=== PATIENT | male | born 1935 | race Caucasian/White ===

== ENCOUNTER 2016-10-10 21:24 | Emergency (ER) | payer MEDICARE, OTHER ==
[~2016-10-10] VITALS: Ht 172.7 cm; Wt 97.9 kg
[~2016-10-10 21:24] MED LIST: ATOR10TA65 PO
[2016-10-10 21:39] VITALS: Ht 172.7 cm; Wt 97.9 kg
[2016-10-10] MEDS ORDERED: KETOROLAC 15 MG INJ IM STA (21:57)
--- NOTE | 2016-10-10 22:25 | RADRPT ---
AMENDMENT: 10/10/2016 10:32:26 PM Tiago Diez M.d Correction: Comparison: 07/21/2015 PROCEDURE: CT Brain without contrast. CLINICAL INDICATION: Trauma, fall TECHNIQUE: A CT of the brain was performed utilizing axial imaging from the skull base through the vertex without intravenous contrast. Multiplanar reformatted images were made.The CTDIvol is 42.56 mGy and the DLP is 720.23 mGycm. One or more the following dose reduction techniques were utilized: Automated exposure control, adjus tment of the mA/ or kV according to patient's size, or use of iterative reconstruction technique. COMPARISON: None. FINDINGS: There is no intracranial hemorrhage, mass effect, or midline shift. No extra-axial fluid collection is seen. Mild to mild atrophy is identified with compensatory ventricular and sulcal enlargement. Mild decreased attenuation is seen in the periventricular and deep white matter, compatible with mi crovascular ischemic disease. The da silva white matter differentiation is well preserved with no acute infarct detected. The osseous structures and visualized paranasal sinuses are unremarkable. Arteria l calcification. IMPRESSION: 1. No evidence of acute intracranial pathology. Mild left frontal extracranial soft tissue swelling /hematoma and laceration. 2. Mild to moderate diffuse atrophy. 3. There is mild microvascular ischemic disease in the periventricular and deep white matter. RPTAT: HJES .Tiago Diez MD, MD Date Time Electronically viewed and signed by .Tiago Diez MD, MD on 10/10/2016 22:32 .S/
--- NOTE | 2016-10-10 22:28 | RADRPT ---
PROCEDURE: CT facial bones CLINICAL INDICATION: Trauma, fall TECHNIQUE: A CT of the facial bones was performed utilizing high-resolution axial images. Sagitta l, coronal, and multiplanar reformatted images were made. Additionally, 3-D reformatted images were made. The CTDIvol is 29.54 mGy and the DLP is 635.9 mGy-cm. One or more the following dose reduction techniques were utilized: Automated exposure control, adjus tment of the mA/ or kV according to patient's size, or use of iterative reconstruction technique. COMPARISON: None. FINDINGS: The osseous structures are intact with no evidence of fracture. The orbits, as visualized, appear i ntact. The overlying soft tissues are grossly unremarkable. The visualized paranasal sinuses are e ssentially clear. Degenerative changes in cervical spine. Vascular calcification. IMPRESSION: Negative CT of the facial bones with no evidence of acute traumatic injury. RPTAT: HJES .Tiago Diez MD, Date Time Electronically viewed and signed by .Tiago Diez MD, on 10/10/2016 22:28 .S/
[2016-10-10] MEDS ORDERED: DIPHTH/TET/ACEL PERTUSS (ADULT) 0.5 ML VIAL IM* ONE (22:30)
--- NOTE | 2016-10-10 22:32 | RADRPT ---
PROCEDURE: CT Cervical Spine. CLINICAL INDICATION: Fall, fall TECHNIQUE: A CT of the cervical spine was performed utilizing thin section axial images from the skull base through the thoracic inlet. Sagittal and coronal reformatted images were made. The CTDI vol is 22.36 mGy and the DLP is 602.11 mGycm. One or more the following dose reduction techniques were utilized: Automated exposure control, adjus tment of the mA/ or kV according to patient's size, or use of iterative reconstruction technique. COMPARISON: MRI of the cervical spine of 07/23/2015 FINDINGS: No acute fracture or dislocation is seen. There is straightening of the the cervical spine which cou ld be secondary to positioning or muscle spasm. Degenerative changes throughout the cervical spine including multilevel spinal stenosis again seen. Vascular calcification. IMPRESSION: Straightening of the cervical spine which could be secondary to positioning or muscle spasm. No acut e fracture or dislocation seen. Degenerative changes. Please see above. RPTAT: HJES .Tiago Diez MD, MD Date Time Electronically viewed and signed by .Tiago Diez MD, on 10/10/2016 22:31 .S/
[2016-10-10] MEDS ORDERED: LIDOCAINE 2% (MDV) 20 ML INJ INJ ONE (23:00)
[2016-10-10] MEDS ORDERED: HYDR-906 PO (23:41)
[2016-10-10] MEDS ORDERED: NAPR-260 PO (23:41)
--- NOTE | 2016-10-10 23:56 | ERD ---
ER Documentation Chief Complaint Date/Time DATE: 10/10/16 TIME: 23:49 Chief Complaint Laceration to the forehead d/t tripped and fall accident HPI This 81-year-old male stumbled when the front of the shoe got caught on cement while in a parking lot. He fell to the ground and protect himself with one arm but did strike his forehead on the ground leading to a laceration. Also has an abrasion to the back of his right hand. Also has an abrasion to his left knee. He denies any other pain. Denies neck pain denies any new back pain. He is alert and oriented. 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 He does not feel confused or ulcers and did not have any chest pain prior to the fall. ROS All systems reviewed and are negative except as per history of present illness. Medications Home Meds Active Scripts Hydrocodone/Acetaminophen (Belden 5-325 Tablet) 1 Each Tablet, 1 EACH PO Q6, #7 TAB Prov:KEENAN PANCHAL 10/10/16 Naproxen* (Naprosyn*) 500 Mg Tablet, 500 MG PO BID Y for PAIN AND/OR INFLAMMATION, #30 TAB Prov:ABDULKADIRKEENAN 10/10/16 Reported Medications Atorvastatin Calcium (Atorvastatin Calcium) 10 Mg Tablet, 10 MG PO QHS, #30 TAB 07/18/15 Allergies Allergies: Coded Allergies: No Known Allergy (Verified , 07/21/15) PMhx/Soc History of Surgery: No Anesthesia Reaction: No Hx Neurological Disorder: Yes (Traumatic Brain Injury) Hx Respiratory Disorders: No Hx Cardiac Disorders: Yes (hyperlipidemia) Hx Psychiatric Problems: No Hx Alcohol Use: No Hx Substance Use: No Hx Tobacco Use: Yes (occ) Smoking Status: Never smoker Physical Exam Vitals Vital Signs Date Time Temp Pulse Resp B/P Pulse Ox O2 Delivery O2 Flow Rate FiO2 10/10/16 21:39 97.9 101 20 143/88 100 Physical Exam Const: [] No distress Head: Jagged 5 cm laceration to left frontal area of scalp. Currently mildly oozing blood Eyes: Normal conjunctiva, DELANO, EOMI ENT: Normal External Ears, Nose and Mouth. Tympanic membranes without any blood or fluid Neck: Full range of motion..~ No meningismus. No midline tenderness. Abd: Soft, non tender, non distended. Normal bowel sounds Skin: No petechiae or rashes Back: No midline or flank tenderness Ext: No cyanosis, or edema, right hand with several small chin skin tears to the posterior aspect, left knee with abrasion. Full palpation of all other joints and extremities with no pain. Neur: Awake and alert and oriented 3, cranial nerves II through XII intact, no cerebellar deficits, Psych: Normal Mood and Affect Results 24 hrs Current Medications Medications (Trade) Dose Ordered Sig/Lorna Route PRN Reason Start Time Stop Time Status Last Admin Dose Admin Ketorolac Tromethamine (Toradol) 15 mg ONCE STAT IM 10/10/16 21:57 10/10/16 21:58 DC 10/10/16 22:07 Diphtheria/ Tetanus/Acell Pertussis (Adacel) 0.5 ml ONCE ONCE IM* 10/10/16 22:30 10/10/16 22:31 DC 10/10/16 22:28 Lidocaine (Xylocaine 2% (Mdv) 20 ml) 20 ml ONCE ONCE INJ 10/10/16 23:00 10/10/16 23:01 DC Procedures/MDM Elderly male with well described mechanism of a trip injury leading to head injury and scalp laceration and abrasions. CT maxillofacial, head and C-spine with no acute fractures. Patient declined x-ray of hand and wrist as well as left knee. Lacerations sutured in emergency room. Patient was given a shot of Toradol 15 mg which did help his pain dramatically. Being discharged with naproxen as well as a few Belden pills and instructions to follow-up in 2-3 days his primary care doctor and have sutures removed in 5-[address] head interpretation: I see no acute process, no hemorrhage no mass-effect no midline shift, no skull fracture CT C-spine interpretation: I see no acute process, no acute fracture or subluxation, no soft tissue injuries. CT maxillofacial interpretation: I see no fracture abnormalities of the orbits. Laceration repair #1: 5 cm jagged crush laceration to the left frontal scalp. Approximately 5 cm, complicated by active bleeding. Area was anesthetized with 2 cc of lidocaine with epinephrine. Area was thoroughly irrigated with normal saline. Laceration was sutured using 6 5-0 silk sutures. Good approximation good hemostasis. Patient taught the procedure well no complication Laceration repair #2: Through and through laceration 2 cm above the lip on the right side. 1 5-0 silk suture was placed in the external portion of the lip after anesthesia with lidocaine with epinephrine, 0.5 cc. 1 6-0 Vicryl suture was placed on the inside of the mouth. This led to good hemostasis as well as good closure. Patient tolerated the procedure well no complications. Departure Diagnosis: Primary Impression: Contusion of wrist, right Additional Impressions: Laceration Abrasions of multiple sites Head injury Condition: Stable Patient Instructions: Abrasion, HEAD INJURY, No Wake-Up (Adult), Laceration, All Additional Instructions: Call your primary care doctor TOMORROW for an appointment during the next 2-3 days. Have sutures removed in 5-7 days. See the doctor sooner or return here if your condition worsens before your appointment time. KEENAN PANCHAL DO October 10, 2016 23:56
[2016-10-10 23:57] VITALS: BP 145/69; PULSE 75; RESP 20; TEMP 98
== END 2016-10-10 23:58 | disposition home or self-care (01) ==
LOC: FTE 21:24
DX: S60.211A Contusion of right wrist, initial encounter (principal); S01.01XA Laceration without foreign body of scalp, initial encounter; S01.511A Laceration without foreign body of lip, initial encounter; S80.212A Abrasion, left knee, initial encounter; W01.0XXA Fall on same level from slipping, tripping and stumbling without subsequent striking against object, initial encounter; Y92.9 Unspecified place or not applicable; Z23 Encounter for immunization; Z87.891 Personal history of nicotine dependence
CPT/HCPCS: 12002; 12011; 70450; 70486; 72125; 90471; 90715; 96372; 99285; J1885

== ENCOUNTER → 2017-06-25 | Outpatient (CLI) | END | disposition home or self-care (01) ==

== ENCOUNTER 2017-07-26 17:51 | Observation (INO) | END 2017-07-29 11:50 | disposition home or self-care (01) ==

== ENCOUNTER → 2017-08-27 | Outpatient (CLI) | END | disposition home or self-care (01) ==

== ENCOUNTER → 2017-08-27 | Outpatient (CLI) | END | disposition home or self-care (01) ==

== ENCOUNTER 2017-09-02 05:32 | Inpatient (IN) | END 2017-09-03 15:50 | disposition home health service (06) | DRG 470 ==

== ENCOUNTER → 2017-09-13 | Outpatient (CLI) | END | disposition home or self-care (01) ==

== ENCOUNTER → 2017-10-11 | Outpatient (CLI) | END | disposition home or self-care (01) ==

== ENCOUNTER → 2017-11-22 | Outpatient (CLI) | END | disposition home or self-care (01) ==

== ENCOUNTER 2018-02-07 13:16 | Observation (INO) | END 2018-02-10 15:15 | disposition home health service (06) ==

== ENCOUNTER 2018-08-26 18:10 | Emergency (ER) | payer MEDICARE, OTHER ==
[~2018-08-26] VITALS: Ht 172.7 cm; Wt 67.0 kg
[~2018-08-26 18:10] MED LIST changes: +MULT-542 PO
[2018-08-26 18:27] VITALS: Ht 172.7 cm; Wt 67.0 kg
[2018-08-26] MEDS ORDERED: SOD CHLORIDE 0.9% 500 ML IV STA (18:34)
[2018-08-26] MEDS ORDERED: LORAZEPAM 2 MG INJ IV ONE (19:00)
[2018-08-26] MEDS ORDERED: LORAZEPAM 0.5 MG TAB PO ONE (19:30)
[2018-08-26] MEDS ORDERED: LORA-441 PO (21:31)
[2018-08-26 21:45] VITALS: BP 170/106; PULSE 110; RESP 21
--- NOTE | 2018-08-27 01:38 | ERD ---
ER Documentation Chief Complaint Chief Complaint C/O SHAKING EPISODE SINCE 1PM TODAY. PT A&OX4. HPI 83-year-old male presenting with episode of shakiness since 1 PM today. He did by a supplement on the Internet and took that at 12 PM today prior to symptoms starting. He states that this supplement is for erectile dysfunction. Per the bottle, the main ingredient is yohimbine. Patient thinks that his symptoms are secondary to this medication. He states he started feeling shaky with palpitations. He felt somewhat diaphoretic but denies any chest pain or shortness of breath. No other symptoms such as vomiting or diarrhea. ROS All systems reviewed and are negative except as per history of present illness. Medications Home Meds Active Scripts Lorazepam* (Ativan*) 0.5 Mg Tablet, 0.5 MG PO Q8H PRN for ANXIETY, #5 TAB Prov:JULIO SOLITARIO MD 08/26/18 Reported Medications Multivitamin* (Daily Value*) 1 Each Tablet, 1 TAB PO DAILY, TAB 02/07/18 Atorvastatin Calcium (Atorvastatin Calcium) 10 Mg Tablet, 10 MG PO QHS, #30 TAB 02/07/18 Allergies Allergies: Coded Allergies: No Known Allergy (Verified , 09/01/17) PMhx/Soc History of Surgery: Yes (Prostatectomy, hip replacement ) Anesthesia Reaction: No Hx Neurological Disorder: No Hx Respiratory Disorders: No Hx Cardiac Disorders: No Hx Psychiatric Problems: No Hx Miscellaneous Medical Probl: Yes (prostate cancer, s/p rt dago , lt gluteal area cellulitis , ) Hx Alcohol Use: Yes (quit 33 years ago) Hx Substance Use: No Hx Tobacco Use: No Smoking Status: Never smoker FmHx Family History: No diabetes Physical Exam Vitals Vital Signs Date Temp Pulse Resp B/P (MAP) Pulse Ox O2 O2 Flow FiO2 Time Delivery Rate 08/26/18 110 21 170/106 98 Room Air 21:45 (127) 08/26/18 97.7 122 20 167/65 99 18:27 (99) Physical Exam Const: No acute distress Head: Atraumatic Eyes: Normal Conjunctiva ENT: Normal External Ears, Nose and Mouth. Neck: Full range of motion. No meningismus. Resp: Clear to auscultation bilaterally Cardio: Regular rate and rhythm, no murmurs Abd: Soft, non tender, non distended. Normal bowel sounds Skin: No petechiae or rashes Back: No midline or flank tenderness Ext: No cyanosis, or edema Neur: Awake and alert Psych: Normal Mood and Affect Result Diagram: 08/26/18184408/26/181844 Results 24 hrs Laboratory Tests Test 08/26/18 18:45 White Blood Count 10.9 10^3/ul Red Blood Count 5.30 10^6/ul Hemoglobin 16.2 g/dl Hematocrit 48.8 % Mean Corpuscular Volume 92.1 fl Mean Corpuscular Hemoglobin 30.6 pg Mean Corpuscular Hemoglobin Concent 33.2 g/dl Red Cell Distribution Width 13.6 % Platelet Count 279 10^3/UL Mean Platelet Volume 9.4 fl Immature Granulocytes % 0.500 % Neutrophils % 84.8 % Lymphocytes % 7.5 % Monocytes % 6.7 % Eosinophils % 0.1 % Basophils % 0.4 % Nucleated Red Blood Cells % 0.0 /100WBC Immature Granulocytes # 0.050 10^3/ul Neutrophils # 9.2 10^3/ul Lymphocytes # 0.8 10^3/ul Monocytes # 0.7 10^3/ul Eosinophils # 0.0 10^3/ul Basophils # 0.0 10^3/ul Nucleated Red Blood Cells # 0.0 10^3/ul Sodium Level 142 mmol/L Potassium Level 4.2 mmol/L Chloride Level 102 mmol/L Carbon Dioxide Level 29 mmol/L Anion Gap 11 Blood Urea Nitrogen 10 mg/dl Creatinine 1.03 mg/dl Est Glomerular Filtrat Rate mL/min mL/min Glucose Level 121 mg/dl Calcium Level 9.9 mg/dl Troponin I 0.016 ng/ml Current Medications Medications Dose Sig/Lorna Start Time Status Last (Trade) Ordered Route PRN Stop Time Admin Dose Reason Admin Sodium 500 ml @ Q1H STAT 08/26/18 DC 08/26/18 Chloride 500 mls/hr IV 18:34 18:50 08/26/18 19:33 Lorazepam 0.5 mg ONCE ONCE 08/26/18 DC 08/26/18 (Ativan) IV 19:00 18:51 08/26/18 19:01 Lorazepam 0.5 mg ONCE ONCE 08/26/18 DC 08/26/18 (Ativan) PO 19:30 19:15 08/26/18 19:31 Procedures/MDM EMERGENT LABS AND DIAGNOSTIC STUDIES: Lab Results above were reviewed and interpreted by me. CBC: no anemia or evidence of infection BMP: No evidence of electrolyte abnormality, renal failure, hypoglycemia Troponin within normal limits, not indicative of cardiac ischemia 12-lead EKG was interpreted by Nuno Solitario MD: sinus tachycardia at 112 bpm beats per minute Left axis deviation Normal intervals No acute ST or T wave changes suggestive of acute ischemia or STEMI. Radiology Results as interpreted by Radiology below were reviewed by Abbi Solitario MD: Chest x-ray shows no acute abnormalities Initial Nursing notes reviewed. Previous Medical Records requested via the Electronic Health Record. EMERGENCY DEPARTMENT COURSE / MEDICAL DECISION MAKING: Patient is presenting with likely medication reaction with hypotension and tachycardia. IV was placed. He was placed on a hospital monitor. He was treated with IV fluids and IV Ativan with significant improvement of his symptoms. I also gave him oral Ativan for mild persistent symptoms. His tachycardia and hypertension significantly improved. I have a low suspicion for any other serious cardiac emergency. Patient was ambulating with a steady gait in the ED. He feels comfortable going home at this time. Advised against the use of this medication or other medications without speaking with his primary care physician. Return precautions given. I spoke with his primary care physician, Dr. Lake, who is aware of the patient's condition and plan. Patient's blood pressure was elevated (>120/80) but appears stable without evidence of hypertensive emergency or urgency. The patient was counseled about the risks of hypertension and urged to pursue outpatient monitoring and therapy within a week with their primary care physician. Departure Diagnosis: Primary Impression: Medication reaction Encounter type: initial encounter Qualified Codes: T50.905A - Adverse effect of unspecified drugs, medicaments and biological substances, initial encounter Additional Impressions: Tachycardia Shakiness Condition: Stable Patient Instructions: Sinus Tachycardia, Drug Reaction, Other JULIO SOLITARIO MD Aug 27, 2018 01:38
== END 2018-08-26 21:46 | disposition home or self-care (01) ==
LOC: E/R 18:10
DX: R00.0 Tachycardia, unspecified (principal); T44.8X5A Adverse effect of centrally-acting and adrenergic-neuron-blocking agents, initial encounter; Z85.46 Personal history of malignant neoplasm of prostate; Z96.649 Presence of unspecified artificial hip joint
CPT/HCPCS: 36415; 80048; 84484; 85025; 93005; 96374; 99284; J2060; J7040